=== PATIENT | female | born 1975 | race Caucasian/White ===

== ENCOUNTER 2017-12-22 18:52 | Emergency (ER) | payer BC, OTHER ==
[2017-12-22 18:52] VITALS: BMI 23.4
[2017-12-22 18:59] VITALS: BP 120/77; PULSE 78; RESP 16; TEMP 98.2; O2SAT 98
[2017-12-22] MEDS ORDERED: Lidocaine 1% Inj (20ml) IJ ONE (19:07)
--- NOTE | 2017-12-22 19:12 | ED PDOC ---
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 INJURY ON INDEX FINGER . IS RIGHT HAND DOMINANT. TETANUS UP TO DATE.) Past Medical History Reviewed: Historical Data, Nursing Documentation, Vital Signs Vital Signs: Last Vital Signs Temp 98.2 F 12/22/17 18:56 Pulse 78 12/22/17 18:56 Resp 16 12/22/17 18:56 BP 120/77 12/22/17 18:56 Pulse Ox 98 12/22/17 19:12 - Medical History PMH: Denies: Depression - Family History Family History: States: No Known Family Hx - Home Medications Home Medications: Ambulatory Orders Medication Instructions Recorded No Known Home Med 07/14/12 - Allergies Allergies/Adverse Reactions: Allergies Allergy/AdvReac Type Severity Reaction Status Date / Time No Known Allergies Allergy Verified 12/22/17 18:56 Review of Systems ROS Statement: Except As Marked, All Systems Reviewed And Found Negative Physical Exam - Reviewed Nursing Documentation Reviewed: Yes Vital Signs Reviewed: Yes - Physical Exam Appears: Positive for: Well, Non-toxic, No Acute Distress Head Exam: Positive for: ATRAUMATIC, NORMAL INSPECTION, NORMOCEPHALIC Skin: Positive for: Normal Color, Warm, DRY Eye Exam: Positive for: EOMI, Normal appearance, PERRL ENT: Positive for: Normal ENT Inspection Neck: Positive for: Normal, Painless ROM Cardiovascular/Chest: Positive for: Regular Rate, Rhythm Respiratory: Positive for: CNT, Normal Breath Sounds Gastrointestinal/Abdominal: Positive for: Normal Exam, Soft Back: Positive for: Normal Inspection Extremity: Positive for: Normal ROM, Other (2 CM LACERATION DISTAL PHALANX VOLAR SURFACE LEFT HAND INDEX FINGER; ABLE TO FLEX AND EXTEND WITHOUT DIFFICULTY ) Neurologic/Psych: Positive for: Alert, Oriented - ECG O2 Sat by Pulse Oximetry: 98 Disposition - Clinical Impression Clinical Impression: Finger laceration - Patient ED Disposition Is Patient to be Admitted: No - Disposition Disposition: Routine/Home Disposition Time: 20:35 Condition: FAIR Additional Instructions: RETURN TO ED/URGENT CARE/PMD IN 7 TO 10 DAYS FOR REMOVAL OF SUTURES Instructions: Laceration Repair With Stitches (DC) Forms: [employer] (Turkmen) Procedure: Wound Repair - Time Performed Time Performed: 19:11 - Time Out Time Out: Site verified - Consent Obtained Consent obtained: Verbal - Performed by Performed by: Mid-level Provider - Indications Indication(s):: Laceration - Location Location:: Left, Hand Finger:: Left, Index Shape:: Linear Dimensions Length cm: 2.0CM Depth:: Epidermis - Anesthetic Technique Anesthetic Technique: Regional block Local/Regional Anesthetic:: Lidocaine 1% - Irrigated Irrigated with ml of normal saline: 100 - Complexity Complexity:: Simple (one layer) - Wound repair method Sutures:: # (FIVE 5-0 NYLON), Technique (INTERRUPTED) - Patient tolerated procedure Patient Tolerated Procedure:: Well
[2017-12-22] MEDS ORDERED: Benzocaine/Butamben/Tetracai 14-2-2% TOP Spray TOP ONE (19:15)
[2017-12-22] MEDS ORDERED: Lidocaine/Prilocaine CREAM 5GM TP ONE (19:29)
== END 2017-12-22 20:50 | disposition home or self-care (01) ==
LOC: H.ER 18:52
DX: S61.211A Laceration without foreign body of left index finger without damage to nail, initial encounter (principal); W26.8XXA Contact with other sharp object(s), not elsewhere classified, initial encounter